=== PATIENT | female | born 1950 | race Asian ===

== ENCOUNTER 2017-08-05 15:16 | Emergency (ER) | payer MEDICARE, OTHER ==
[~2017-08-05] VITALS: Ht 162.6 cm; Wt 59.0 kg
[~2017-08-05 15:16] MED LIST: CARISOPRODOL350 MG ORAL; CELEBREX200 MG ORAL; DAILY MULTIPLE1 EACH ORAL; FISH OIL500 MG PO; GABAPENTIN300 MG ORAL; LISINOPRIL40 MG PO; LOVASTATIN40 MG ORAL; PREMARIN0.3 MG ORAL; TRICOR145 MG ORAL; VITAMIN A10000 UNIT PO; VITAMIN B-12100 MCG PO; VITAMIN C250 MG ORAL; VITAMIN D3; VITAMIN E100 UNIT PO
[2017-08-05 16:37] VITALS: BP 127/82
[2017-08-05] MEDS ORDERED: Ketorolac 30mg Inj IV ONE (16:45)
--- NOTE | 2017-08-05 16:49 | Diagnostic Imaging Report ---
Indication: Pain Findings: 3 views of the left shoulder were obtained. Reverse total left shoulder arthroplasty demonstrated. No acute fracture or obvious malalignment are identified. There is no abnormality of hardware alignment or position identified. Acromioplasty with multiple screws noted. IMPRESSION: No acute findings.
--- NOTE | 2017-08-05 16:50 | Diagnostic Imaging Report ---
Indication: Pain Findings: 2 views of the left humerus were obtained. Reverse total shoulder arthroplasty demonstrated. The bones are osteopenic. There is no fracture of the humerus identified. IMPRESSION: No acute findings
[2017-08-05] MEDS ORDERED: IBUPROFEN600 MG ORAL (16:52)
[2017-08-05 17:00] VITALS: BP 127/82
--- NOTE | 2017-08-05 17:31 | Emergency Room Report ---
History of Present Illness General Chief Complaint: Upper Extremity Injury Source: EMS Present Illness HPI 66-year-old female presents ED complaining of left shoulder pain. She that she rolled in bed this morning felt a pop of her left shoulder. Believes it is dislocated. Given IV morphine by EMS. States she is unable to move the shoulder. Pain is 6/10, throbbing, radiating through the neck and left arm. Patient states 4 months ago she had a shoulder replacement on the left shoulder done at [facility] by Dr. Camacho. Denies any other injuries. No other aggravating or relieving factors. Denies any other associated symptoms Allergies: Coded Allergies: ADHESIVE (Verified Allergy, Intermediate, RASH, 01/15/13) CODEINE (Verified Allergy, Intermediate, Shortness of Breath, 01/15/13) NAUSEA MEPERIDINE HCL (Verified Allergy, Unknown, Shortness of Breath, 08/05/17) Patient History Past Medical History: HTN Past Surgical History: none Pertinent Family History: none Social History: Denies: smoking, alcohol use, drug use Now: No Immunizations: UTD Reviewed Nursing Documentation: PMH: Agreed, PSxH: Agreed Nursing Documentation-PMH Hx Cardiac Problems: Yes Hx Hypertension: Yes Hx Cancer: No Hx Gastrointestinal Problems: No Hx Neurological Problems: No Review of Systems All Other Systems: negative except mentioned in HPI Physical Exam Vital Signs Date Time Temp Pulse Resp B/P (MAP) Pulse Ox O2 Delivery O2 Flow Rate FiO2 08/05/17 15:11 98.2 72 16 180/90 98 Room Air Sp02 EP Interpretation: reviewed, normal General Appearance: no apparent distress, alert, GCS 15, non-toxic Head: normocephalic Eyes: bilateral eye normal inspection, bilateral eye PERRL ENT: normal ENT inspection Neck: normal inspection Respiratory: chest non-tender, lungs clear, normal breath sounds, speaking full sentences Cardiovascular #1: regular rate, rhythm, no edema Gastrointestinal: normal inspection Rectal: deferred Genitourinary: no CVA tenderness Musculoskeletal: normal range of motion, tender - L shoulder Psychiatric: normal inspection Skin: normal inspection Lymphatic: normal inspection Procedures Splinting Splinting : Consent: Verbal Pre-Made Type: shoulder immobilizer Pre-Proc Neuro Vasc Exam: normal Post-Proc Neuro Vasc Exam: normal Patient Tolerated: Well Complications: None Medical Decision Making Diagnostic Impression: Primary Impression: Shoulder injury Qualified Codes: S49.92XA - Unspecified injury of left shoulder and upper arm , initial encounter ER Course Hospital Course 66-year-old female presents to ED complaining of L shoulder pain Differential diagnoses include: Fracture, dislocation, sprain, contusion Clinical course Patient placed on stretcher. After initial history and physical I ordered xrays of L shoulder xrays show evidence of reverse arthroplasty, but no evidence of subluxation, dislocation placed in shoulder immobilizer Patient has full range of motion to the left shoulder. Discussed findings with Dr. Nation. He agrees that patient can be discharged to home pending outpatient followup Diagnosis - shoulder pain Stable and discharged to home with prescription for Motrin. Followup with PMD. Return to ED if symptoms recur or worsen Other X-Ray Diagnostic Results Other X-Ray Diagnostic Results #1: X-Ray ordered: L shoulder # of Views/Limited Vs Complete: 3 View Indication: Pain EP Interpretation: Yes Interpretation: no dislocation, no soft tissue swelling, no fractures, other - reverse arthroplasty Impression: No acute disease Electronically Signed by: Electronically signed by Jonathan England MD Other X-Ray Diagnostic Results #2: X-Ray ordered: Left humerus # of Views/Limited Vs Complete: 2 View Indication: Pain EP Interpretation: Yes Interpretation: no dislocation, no soft tissue swelling, no fractures, other - L shoulder arthroplasty Impression: No acute disease Electronically Signed by: Electronically signed by Jonathan England MD Last Vital Signs Date Time Temp Pulse Resp B/P (MAP) Pulse Ox O2 Delivery O2 Flow Rate FiO2 08/05/17 17:00 98.2 54 14 127/82 100 Room Air Status: improved Disposition: HOME, SELF-CARE Condition: Stable Scripts Ibuprofen* (MOTRIN*) 600 Mg Tablet 600 MG ORAL Q8H Y for For Pain, #30 TAB 0 Refills Prov: JONATHAN ENGLAND M.D. 08/05/17 Referrals: Myron Nation MD NOT CHOSEN IPA/,REFERRING (PCP) Patient Instructions: Shoulder Dislocation, [id number] JONATHAN ENGLAND M.D. Aug 05, 2017 17:31
== END 2017-08-05 17:00 | disposition home or self-care (01) ==
LOC: EDBD 15:16 → EMR 16:30
DX: S49.82XA Other specified injuries of left shoulder and upper arm, initial encounter (principal); W06.XXXA Fall from bed, initial encounter; Y92.003 Bedroom of unspecified non-institutional (private) residence as the place of occurrence of the external cause; I10 Essential (primary) hypertension; Z88.6 Allergy status to analgesic agent; Z88.8 Allergy status to other drugs, medicaments and biological substances; M85.812 Other specified disorders of bone density and structure, left shoulder
CPT/HCPCS: 73030; 73060; 96374; 99284; J1885